=== PATIENT | female | born 1970 | race Caucasian/White ===

== ENCOUNTER → 2025-01-29 08:01 | Outpatient (CLI) | payer OTHER, SELFPAY ==
--- NOTE | 2025-01-29 08:08 | DI.ECHO.S_ITS ---
[facility] : : [address] : : [place] : : [id number] : : Phone: [phone] Echocardiogram Report + + :Name: MATTHEW KENNEY Study Date: 01/29/2025 Height: 67 in : :[facility] ReadingLocation: Weight: 200 lb : : Gender: Female BSA: 2.0 m2 : :: 1970 Age: 54 yrs BP: 112/78 mmHg: :Reason For Study: Abnormal EKG : :Ordering Physician: ROBINSON PARK Performed By: Manjit Corrales : :Referring: ROBINSON PARK : + + Interpretation Summary - The left ventricular contractility is normal. Estimated ejection fraction is greater than 55% with no segmental wall motion abnormalities. No LVH. Normal diastolic function. - The right ventricular contractility is normal. - All cardiac chambers are normal size. - No significant valvular abnormalities. - No obvious intracardiac shunts. - No obvious extra masses or thrombi. - No hemodynamically significant pericardial effusion. - Low right-sided filling pressures. Conclusion: Normal biventricular function with no significant valvular nor structural abnormalities. Procedure: A two-dimensional transthoracic echocardiogram with color flow and Doppler was performed. The study quality was technically adequate. There is no prior echocardiogram noted for this patient. The heart rate ranged between 60-69 bpm during the study. Left Ventricle: The left ventricle is normal in size and wall thickness. Overall left ventricular systolic function is preserved. The ejection fraction is estimated to be 55-60%. Normal diastolic function. Right Ventricle: The right ventricle is normal in size and function. Atria: The left atrial size is normal. Right atrial size is normal. There is no Doppler evidence for an interatrial shunt. Mitral Valve: The mitral valve leaflets appear to open well. There is no mitral valve stenosis. There is trace mitral regurgitation. Aortic Valve: The aortic valve is trileaflet. The aortic valve opens well. There is no aortic valve stenosis. No aortic regurgitation is present. Tricuspid Valve: The tricuspid valve leaflets are thin and pliable. There is trace tricuspid regurgitation. The right ventricular systolic pressure is estimated to be at least 18 mmHg based on an estimated right atrial pressure of 3 mm Hg. Pulmonic Valve: The pulmonic valve is not well seen, but is grossly normal. There is a trace or physiologic amount of pulmonic regurgitation. Great Vessels: The aortic root is normal size. The ascending aorta is normal in size. The aortic arch is normal in size. The pulmonary artery is normal size. The IVC is of normal diameter and collapses greater than 50% with a sniff. This suggests a low right atrial pressure of 3 mm Hg. Pericardium/ Pleura There is no pericardial effusion. MMode/2D Measurements & Calculations LVIDd: 4.6 cm LVOT diam: 2.4 cm LVIDs: 3.1 cm Ao root diam: 3.4 cm FS: 32.6 % asc Aorta Diam: 3.3 cm IVSd: 0.77 cm Ao Arch Diam (Prox Trans): 2.6 cm LVPWd: 0.81 cm LV almaraz. diameter/BSA (cm/m^2): 2.3 LV sys. diameter/BSA (cm/m^2): 1.5 LA A2 area: 13.5 cm2 RVD1 (basal): 2.7 cm LA A4 area: 15.6 cm2 RVD2 (mid): 2.5 cm LA length (vol): 4.6 cm TAPSE: 2.5 cm LA vol: 38.4 ml LA vol index: 19.0 ml/m2 Doppler Measurements & Calculations Ao V2 max: 79.4 cm/sec LVOT Max Yonny: 70.6 cm/sec Ao V2 mean: 55.0 cm/sec LV V1 max P.0 mmHg Ao max P.5 mmHg LV V1 VTI: 12.6 cm Ao mean P.3 mmHg BLANKA(I,D): 4.0 cm2 Ao V2 VTI: 14.6 cm BLANKA(V,D): 4.1 cm2 sev ratio: 0.86 BLANKA indexed to BSA (cm^2/m^2): 2.0 MV E max yonny: 62.4 cm/sec TR max yonny: 193.4 cm/sec MV A max yonny: 50.2 cm/sec TR max P.0 mmHg MV E/A: 1.2 PA V2 max: 68.9 cm/sec Med Peak E' Yonny: 6.6 cm/sec PA V2 mean: 49.7 cm/sec E/E' med: 9.4 PA mean P.1 mmHg Lat Peak E' Yonny: 5.9 cm/sec PA pr(Accel): 44.3 mmHg E/E' lat: 10.7 E/e' average: 10.0 MV dec time: 0.17 sec SV(LVOT): 58.4 ml Reading Physician:LEAH
== END ==
LOC: ECHO 08:06
PROVIDERS: Visit Provider Internal Medicine
DX: R94.31 Abnormal electrocardiogram [ECG] [EKG] (principal)
CPT/HCPCS: 93306